=== PATIENT | female | born 1980 | race Hispanic/Latino ===

== ENCOUNTER 2017-03-14 | Emergency (ER) | payer OTHER ==
[~2017-03-14] VITALS: Ht 157.5 cm; Wt 43.0 kg
[2017-03-14] MEDS ORDERED: ACETAMINOPHEN 325 MG TAB PO ONE (01:00)
[2017-03-14 01:41] VITALS: BP 131/77
== END 2017-03-14 01:42 | disposition home or self-care (01) ==
LOC: M ED
DX: R55 Syncope and collapse (principal); T74.11XA Adult physical abuse, confirmed, initial encounter; Y92.9 Unspecified place or not applicable; Y93.9 Activity, unspecified

== ENCOUNTER 2017-12-20 15:10 | Emergency (ER) | payer OTHER ==
[2017-12-20] MEDS: IBUPROFEN 800 MG TAB PO (16:12)
== END 2017-12-20 17:36 | disposition home or self-care (01) ==
LOC: M ED 15:10
DX: J06.9 Acute upper respiratory infection, unspecified (principal)
CPT/HCPCS: 70360

== ENCOUNTER → 2018-02-22 | Outpatient (REF) | payer OTHER ==
[2018-02-25 10:00] LABS: H PYLORI STOOL ANTIGEN Negative (Negative)
== END ==
LOC: M LAB REF 15:02
DX: R10.30 Lower abdominal pain, unspecified (principal)

== ENCOUNTER 2018-05-05 06:49 | Emergency (ER) | payer OTHER ==
[2018-05-05] MEDS: ACETAMINOPHEN 325 MG TAB PO (07:44)
== END 2018-05-05 08:26 | disposition home or self-care (01) ==
LOC: M ED 06:49
DX: S10.93XA Contusion of unspecified part of neck, initial encounter (principal); S20.229A Contusion of unspecified back wall of thorax, initial encounter; S40.021A Contusion of right upper arm, initial encounter; W01.0XXA Fall on same level from slipping, tripping and stumbling without subsequent striking against object, initial encounter; Y92.89 Other specified places as the place of occurrence of the external cause; Y99.0 Civilian activity done for income or pay
CPT/HCPCS: 70450

== ENCOUNTER 2019-04-26 20:53 | Emergency (ER) | payer OTHER, SELFPAY ==
[~2019-04-26] VITALS: Ht 152.4 cm; Wt 42.1 kg
[~2019-04-26 20:53] MED LIST: IBUP-1114 PO; IBUP80TA PO
[2019-04-26 20:54] VITALS: BP 117/73
[2019-04-26] MEDS ORDERED: FLUTISP (22:14)
== END 2019-04-26 23:55 | disposition home or self-care (01) ==
LOC: M ED 20:53
DX: J02.9 Acute pharyngitis, unspecified (principal); J30.2 Other seasonal allergic rhinitis; R09.82 Postnasal drip; R30.0 Dysuria; Z88.8 Allergy status to other drugs, medicaments and biological substances

== ENCOUNTER → 2019-05-31 | Outpatient (CLI) | payer OTHER ==
[~2019-05-31] MED LIST changes: +FLUTISP
[2019-05-31 09:32] LABS: EOS # 0.3 10^3/uL (0.0-0.5); EOS % 7.4 % (0.0-3.0); HEMATOCRIT 38.1 % (36.0-47.0); HEMOGLOBIN 12.2 g/dl (12.0-15.5); LYMPH # 1.4 10^3/uL (1.5-5.0); LYMPH % 34.3 % (24.0-44.0); MEAN CORPUSCULAR HEMOGLOBIN 30.2 pg (27.0-33.0); MEAN CORPUSCULAR VOLUME 94.3 fl (80.0-96.0); MONO # 0.4 10^3/uL (0.0-0.8); MONO % 9.4 % (0.0-5.0); NEUTROPHILS # 1.9 10^3/uL (1.5-8.5); NEUTROPHILS % 47.7 % (36.0-66.0); PLATELET COUNT, AUTOMATED 222 10^3/uL (150-450); RED BLOOD COUNT 4.04 10^6/uL (4.00-5.40); WHITE BLOOD COUNT 4.1 10^3/uL (4.0-10.0)
[2019-05-31 10:01] LABS: ALBUMIN 3.4 GM/DL (3.2-5.2); ALT/SGPT 19 U/L (12-78); BILIRUBIN,TOTAL 0.4 MG/DL (0.2-1.0); BLOOD UREA NITROGEN 15 MG/DL (7-18); CALCIUM LEVEL 8.6 MG/DL (8.5-10.1); CARBON DIOXIDE LEVEL 28 MEQ/L (21-32); CHLORIDE LEVEL 111 MEQ/L (98-107); CHOLESTEROL LEVEL 132 MG/DL (<200); CHOLESTEROL RISK RATIO 1.885 (<5); CREATININE FOR GFR 0.68 MG/DL (0.55-1.30); FERRITIN 5 NG/ML (8-252); FREE T4 0.83 NG/DL (0.76-1.46); GLOMERULAR FILTRATION RATE > 60.0 (>58); GLUCOSE, FASTING 86 MG/DL (70-100); HDL CHOLESTEROL 70 MG/DL (>40); IRON (FE) 39 UG/DL (50-170); LDL CHOLESTEROL 54 MG/DL (<100); NON-HDL-C 62 MG/DL; POTASSIUM SERUM 4.3 MEQ/L (3.5-5.1); SODIUM LEVEL 143 MEQ/L (136-145); TRIGLYCERIDES LEVEL 42 MG/DL (<150)
[2019-05-31 10:02] LABS: HEMOGLOBIN A1c 5.4 %
[2019-06-02 11:03] LABS: TOTAL 25(OH) VITAMIN D 42.3 NG/ML (30.0-100.0)
[2019-06-02 11:04] LABS: FOLATE 21.2 NG/ML (>5.4)
[2019-06-02 11:05] LABS: VITAMIN B12 LEVEL > 2000 PG/ML (247-911)
== END ==
LOC: M LAB 09:02
PROVIDERS: ATTEND Nurse Practitioner Family
DX: Z00.01 Encounter for general adult medical examination with abnormal findings (principal); D64.9 Anemia, unspecified

== ENCOUNTER → 2019-06-11 | Outpatient (CLI) | payer OTHER ==
--- NOTE | 2019-06-11 12:25 | REP ---
Clinical: Solitary pulmonary nodule. Technique: Axial noncontrast images from the thoracic inlet to the upper abdomen with coronal and sagittal re-formations. Comparison: 02/28/2016. Findings: A small 3 mm nodular density inseparable from the left major fissure is again noted and stable. Small residual scarring in the left lower lobe at the site of prior consolidation is identified. Minimal biapical scarring noted. No further acute consolidation, significant nodule, or mass. No pleural effusion. No pneumothorax. No obvious adenopathy. Mediastinum demonstrates normal thoracic aorta, pulmonary vasculature and heart/pericardium. Surrounding musculoskeletal structures are intact. Impression: 1. Stable chronic nodule inseparable from the left major fissure unchanged from prior examination likely representing small granuloma or scar. 2. Biapical scarring and minimal scarring at the left base at the site of prior completely resolved infiltrate. 3. No acute mediastinal or pleuroparenchymal process appreciated. Electronically Signed by Jose G Mcdaniel MD 06/11/2019 12:16 P
== END ==
LOC: M RAD 11:49
PROVIDERS: ATTEND Nurse Practitioner Family
DX: R91.1 Solitary pulmonary nodule (principal)

== ENCOUNTER → 2019-06-20 | Outpatient (REF) | payer OTHER | LOC: M LAB REF 19:14 | PROVIDERS: ATTEND Family Medicine | DX: Z12.4 Encounter for screening for malignant neoplasm of cervix (principal); N76.0 Acute vaginitis; R87.610 Atypical squamous cells of undetermined significance on cytologic smear of cervix (ASC-US) ==

== ENCOUNTER → 2019-07-31 | Outpatient (REF) | payer OTHER ==
[2019-07-31 11:56] LABS: BASO # 0.1 10^3/uL (0.0-0.2); BASO % 1.2 % (0.0-1.0); EOS # 0.3 10^3/uL (0.0-0.5); EOS % 6.2 % (0.0-3.0); HEMATOCRIT 36.3 % (36.0-47.0); HEMOGLOBIN 11.6 g/dl (12.0-15.5); LYMPH # 1.5 10^3/uL (1.5-5.0); LYMPH % 36.1 % (24.0-44.0); MEAN CORPUSCULAR HEMOGLOBIN 29.5 pg (27.0-33.0); MEAN CORPUSCULAR VOLUME 92.4 fl (80.0-96.0); MONO # 0.5 10^3/uL (0.0-0.8); MONO % 11.7 % (0.0-5.0); NEUTROPHILS # 1.8 10^3/uL (1.5-8.5); NEUTROPHILS % 44.6 % (36.0-66.0); PLATELET COUNT, AUTOMATED 198 10^3/uL (150-450); RED BLOOD COUNT 3.93 10^6/uL (4.00-5.40)
[2019-07-31 12:24] LABS: ALBUMIN 3.7 GM/DL (3.2-5.2); ALT/SGPT 21 U/L (12-78); BILIRUBIN,TOTAL 0.5 MG/DL (0.2-1.0); BLOOD UREA NITROGEN 12 MG/DL (7-18); CALCIUM LEVEL 8.5 MG/DL (8.5-10.1); CARBON DIOXIDE LEVEL 27 MEQ/L (21-32); CHLORIDE LEVEL 109 MEQ/L (98-107); CHOLESTEROL LEVEL 151 MG/DL (<200); CREATININE FOR GFR 0.69 MG/DL (0.55-1.30); FREE T4 1.05 NG/DL (0.76-1.46); GLOMERULAR FILTRATION RATE > 60.0 (>58); GLUCOSE, FASTING 69 MG/DL (70-100); HDL CHOLESTEROL 74 MG/DL (>40); HEMOGLOBIN A1c 5.5 %; LDL CHOLESTEROL 72 MG/DL (<100); NON-HDL-C 77 MG/DL; POTASSIUM SERUM 4.1 MEQ/L (3.5-5.1); SODIUM LEVEL 142 MEQ/L (136-145); TOTAL 25(OH) VITAMIN D 39.8 NG/ML (30.0-100.0); TOTAL PROTEIN 6.9 GM/DL (6.4-8.2); TRIGLYCERIDES LEVEL 26 MG/DL (<150)
== END ==
LOC: M LAB REF 11:39
PROVIDERS: ATTEND Family Medicine
DX: Z13.228 Encounter for screening for other metabolic disorders (principal)

== ENCOUNTER → 2019-08-22 | Outpatient (CLI) | payer OTHER ==
--- NOTE | 2019-08-22 17:45 | REP ---
Bilateral digital diagnostic mammography with CAD, 3-D tomography, and bilateral subareolar sonography. History: Bilateral non bloody nipple discharge. Mammographic findings: Breast parenchyma is heterogeneously dense in a pattern which inhibits the sensitivity of mammography. No mass, architectural distortion, suspicious microcalcification, or worrisome skin changes appreciated on either side mammographically. 3-D tomographic images show no additional abnormality. Sonographic findings: Regions are scanned. There are minimally prominent ducts in the retroareolar region. On the right there are two small anechoic cysts in the retroareolar region. No suspicious finding is seen on the right. On the left, there is a slightly hypoechoic solid oval-shaped nodule measuring 6 x 7 x 3 mm located 2.2 cm from the nipple this is only slightly hypoechoic and may be normal glandular tissue surrounded by echogenic fibrous change. Impression: BIRADS category III probably benign findings. Recommend follow-up left breast subareolar sonography is 6 months regarding an oval-shaped 7 mm very subtly hypoechoic area which may be normal fibroglandular tissue. No mammographic finding. BIRADS 3: BI-RADS/ACR category 3 mammogram. Probably Benign Findings. This mammogram was interpreted with the aid of an FDA-approved computer-aided detection system. The patient states she had a clinical breast exam in August 01, 2019 The patient letter being requested is m3 This patient's estimated Tyrer-Cuzick lifetime risk assessment for the breast cancer is 9.2 %. Electronically Signed by Gus Patel MD 08/23/2019 05:34 A
== END ==
LOC: M RAD 13:06
PROVIDERS: ATTEND Surgery
DX: R92.8 Other abnormal and inconclusive findings on diagnostic imaging of breast (principal); N64.52 Nipple discharge
CPT/HCPCS: 76642; 77066; G0279

== ENCOUNTER → 2019-09-16 | Outpatient (CLI) | payer OTHER ==
[~2019-09-16] MED LIST changes: +PROHANCE 279.3MG/ML 5ML VIAL (A9576) As Ordered ONE
--- NOTE | 2019-09-16 17:14 | REP ---
Bilateral breast MRI study without and with IV gadolinium: History: Bilateral nipple discharge. Comparison mammography and subareolar sonography 22 August 2019. Technique: Three Denaa MRI imaging was performed with a dedicated breast coil. Axial, coronal, and sagittal T1 and T2-weighted scans were obtained with and without fat saturation in the usual fashion. The study includes dynamically acquired post gadolinium enhanced imaging subtraction imaging. Maximal intensity projection and multiplanar re-formation imaging is included as well. The study was interpreted with the aid of [employer], an FDA approved computer-aided detection (CAD) software program, on a dedicated breast MRI work station. The gadolinium enhancement dose is eight ml of intravenous ProHance. Findings: There is extensive fibroglandular tissue noted bilaterally which corresponds with the breast density pattern seen mammographically. There is a moderate pattern of patchy somewhat asymmetric bilateral background parenchymal enhancement. There are some prominent subareolar ducts bilaterally. No suspicious morphologic abnormality is observed on high-resolution pre or postcontrast images with T1 and T2-weighted scans. There is no evidence of breast mass or suspicious focus of enhancement and washout on either side on dynamic postcontrast images. Impression: BIRADS category 2 benign findings. Electronically Signed by Gus Patel MD 09/16/2019 07:37 P
== END ==
LOC: M RAD 14:42
PROVIDERS: ATTEND Surgery
DX: N64.52 Nipple discharge (principal)
CPT/HCPCS: A9576; C8908

== ENCOUNTER → 2019-10-20 | Outpatient (CLI) | payer OTHER ==
[~2019-10-20] MED LIST changes: +FERR325T3 PO; +OMEP-221 PO; -PROHANCE 279.3MG/ML 5ML VIAL (A9576) As Ordered ONE
== END ==
LOC: M PLALAB 14:22
PROVIDERS: ATTEND Surgery
DX: Z13.79 Encounter for other screening for genetic and chromosomal anomalies (principal)

== ENCOUNTER → 2019-11-18 | Outpatient (CLI) | payer OTHER ==
--- NOTE | 2019-11-18 15:33 | REP ---
PELVIC ULTRASOUND: Real-time sonographic evaluation of the pelvis performed utilizing transabdominal and endovaginal technique. Urinary bladder measures 1.5 x 2.5 cm. Uterus measures 7.9 x 4.5 x 5.0 cm. Endometrial thickness is approximately 15 mm. There appears to be a submucosal fibroid or polyp in the endometrial canal as seen on prior ultrasound of 08/24/2015. This measures 1.4 x 1.1 x 1.5 cm. There is internal blood flow with duplex Doppler evaluation. There appears to be a 7 mm intramural fibroid in the anterior uterine body. A complex dominant follicle is seen in the right ovary measuring 2.2 x 1.1 x 1.4 cm. The right ovary itself measures 2.7 x 1.5 x 3.0 cm. The left ovary measures 2.2 x 1.3 x 1.6 cm. There is blood flow seen in each ovary with duplex Doppler evaluation, with no torsion. No free fluid is seen. IMPRESSION: Submucosal fibroid or polyp in the endometrial canal unchanged since prior ultrasound of 08/24/2015. Anterior intramural fibroid 7 mm in diameter. No adnexal mass or free fluid.
== END ==
LOC: M WHC 13:43
PROVIDERS: ATTEND Nurse Practitioner Family
DX: G89.29 Other chronic pain (principal); R10.2 Pelvic and perineal pain

== ENCOUNTER → 2020-01-06 | Outpatient (CLI) | payer OTHER ==
[~2020-01-06] MED LIST changes: +NAPR-837 PO
== END ==
LOC: M LABSMTC 10:28
PROVIDERS: ATTEND Anesthesiology
DX: Z01.818 Encounter for other preprocedural examination (principal); Z11.59 Encounter for screening for other viral diseases
CPT/HCPCS: C9803; U0003

== ENCOUNTER 2020-01-09 06:12 | Day surgery (SDC) | payer OTHER ==
[~2020-01-09] VITALS: Ht 152.4 cm; Wt 43.1 kg
[~2020-01-09 06:12] MED LIST changes: +LIDOCAINE 1% MDV 20ML VIAL SQ PRN; +LR 1,000 ML IV ONE
[2020-01-09 06:39] LABS: HEMATOCRIT 33.7 % (36.0-47.0); HEMOGLOBIN 10.8 g/dl (12.0-15.5); MEAN CORPUSCULAR HEMOGLOBIN 28.4 pg (27.0-33.0); MEAN CORPUSCULAR VOLUME 88.7 fl (80.0-96.0); PLATELET COUNT, AUTOMATED 192 10^3/uL (150-450); WHITE BLOOD COUNT 4.2 10^3/uL (4.0-10.0)
[2020-01-09 07:01] LABS: HCG, SERUM QUALITATIVE NEGATIVE (NEGATIVE)
[2020-01-09] MEDS ORDERED: ONDANSETRON 4MG/2ML VIAL As Ordered ONE (07:19)
[2020-01-09] MEDS ORDERED: fentaNYL 250 MCG/5 ML INJECTION (J3010) As Ordered ONE (07:19)
[2020-01-09] MEDS ORDERED: MIDAZOLAM INJ 2MG/2ML VIAL (J2250 PER 1MG) As Ordered ONE (07:19)
[2020-01-09] MEDS ORDERED: dexameTHASONE 4 MG/ML 1ML VIAL (J1100 PER 1MG) As Ordered ONE (07:19)
[2020-01-09] MEDS ORDERED: LIDOCAINE 2% 100MG/5ML SDV (FOR ANES.) As Ordered ONE (07:19)
[2020-01-09] MEDS ORDERED: KETOROLAC 60 MG/2 ML VIAL As Ordered ONE (07:19)
[2020-01-09] MEDS ORDERED: propofoL 200 MG/20 ML VIAL As Ordered ONE (07:19)
[2020-01-09] MEDS ORDERED: ACETAMINOPHEN 1000MG 100ML IV BTL (OFIRMEV) (J0131 PER 10MG) As Ordered ONE (07:52)
[2020-01-09] MEDS ORDERED: ePHEDrine SULFATE 25 MG/5 ML(5MG/ML) SYRINGE As Ordered ONE (07:53)
[2020-01-09] MEDS ORDERED: LR 1,000 ML IV SCH ×2 (08:45)
[2020-01-09] MEDS ORDERED: ONDANSETRON 4MG/2ML VIAL IV PRN (08:45)
[2020-01-09] MEDS ORDERED: oxyCODONE 5MG TAB PO PRN (08:45)
[2020-01-09] MEDS ORDERED: fentaNYL 100 MCG/2 ML INJECTION (J3010) IV PRN (08:45)
[2020-01-09] MEDS ORDERED: MEPERIDINE INJ 25 MG/ML VIAL (J2175) IV PRN (08:45)
[2020-01-09 11:20] VITALS: BP 113/60
== END 2020-01-09 11:35 | disposition home or self-care (01) ==
LOC: M SDC 06:12
PROVIDERS: ATTEND Obstetrics & Gynecology
DX: N85.8 Other specified noninflammatory disorders of uterus (principal); N85.00 Endometrial hyperplasia, unspecified; K58.9 Irritable bowel syndrome, unspecified; K21.9 Gastro-esophageal reflux disease without esophagitis; D64.9 Anemia, unspecified; Z88.5 Allergy status to narcotic agent; Z79.899 Other long term (current) drug therapy; Z79.1 Long term (current) use of non-steroidal anti-inflammatories (NSAID)
CPT/HCPCS: 36415; 58558; 84703; 85027; 86850; 86900; 86901; 88305; J0131; J1100; J1885; J2250; J2405; J3010